=== PATIENT | female | born 1950 | race Caucasian/White ===

== ENCOUNTER → 2018-06-27 | Outpatient (CLI) | payer BC, MEDICARE ==
--- NOTE | 2018-06-27 13:13 | XR ---
EXAMINATION TYPE: XR foot complete RT DATE OF EXAM: 06/27/2018 CLINICAL HISTORY: Follow-up for right fifth metatarsal fracture TECHNIQUE: Frontal, lateral, and oblique images of the right foot are obtained. COMPARISON: None FINDINGS: There is a nonunited fracture of the base of the fifth metatarsal that is not comminuted an d transversely oriented. This appears subacute with sclerosed distal fracture margin. This is also no ndisplaced. There is generalized osseous demineralization seen. No radio opaque foreign body. No abdi tional acute fracture. IMPRESSION: Nonunited, nondisplaced, noncomminuted fracture of the base of the fifth metatarsal super imposed upon generalized osseous demineralization.
== END | disposition home or self-care (01) ==
LOC: RADXRMAIN 11:42
PROVIDERS: ATTEND Family Medicine
DX: S92.354K Nondisplaced fracture of fifth metatarsal bone, right foot, subsequent encounter for fracture with nonunion (principal)